=== PATIENT | female | born 2000 | race Two or more races ===

== ENCOUNTER 2020-07-07 02:21 | Emergency (ER) | payer MEDICAID ==
[~2020-07-07] VITALS: Ht 162.6 cm; Wt 50.0 kg
[2020-07-07 03:36] VITALS: BP 131/82
== END 2020-07-07 03:36 | disposition home or self-care (01) ==
LOC: ER 02:21
DX: F41.0 Panic disorder [episodic paroxysmal anxiety] (principal); R00.0 Tachycardia, unspecified; F41.9 Anxiety disorder, unspecified; Z88.2 Allergy status to sulfonamides
CPT/HCPCS: 81025; 93005; 99283